=== PATIENT | female | born 1980 | race Caucasian/White ===

== ENCOUNTER → 2017-04-08 | Outpatient (CLI) | payer BC ==
--- NOTE | 2017-04-08 15:00 | RADIOLOGY REPORT (SQ) ---
EXAM DESCRIPTION: HAND LEFT 3 VIEWS COMPLETED DATE/TIME: 04/08/2017 2:00 pm REASON FOR STUDY: FINGER PAIN, LEFT M79.645 PAIN IN LEFT FINGER(S) COMPARISON: None. EXAM PARAMETERS: NUMBER OF VIEWS: Three views. TECHNIQUE: AP, lateral and oblique radiographic images acquired of the left hand. LIMITATIONS: None. FINDINGS: MINERALIZATION: Normal. BONES: No acute fracture or dislocation. No worrisome bone lesions. JOINTS: Along the ulnar aspect of the 2nd finger PIP joint, a 9 x 6 mm calcific density is present wh ich may represent calcifications/ossification of the ulnar collateral ligament at the PIP joint. A s ynovial overgrowth or tumor could not be excluded. Tophus related to gout is possible but considered less likely, given that there are no the adjacent bony erosions. Consider MRI for further evaluatio n. SOFT TISSUES: Focal soft tissue swelling along the ulnar aspect of the index finger PIP joint with 9 x 6 mm calcific or ossified nodule OTHER: No other significant finding. IMPRESSION: Focal soft tissue swelling ulnar aspect of the index finger PIP joint with a 9 x 6 mm ca lcific or ossified nodule. This could represent ligament calcification. Synovial overgrowth for liza or could not be excluded. Tophus related to gout is possible but considered less likely. Consider M RI without and with contrast for further evaluation TECHNICAL DOCUMENTATION: JOB ID: [id number] [employer]- All Rights Reserved
--- NOTE | 2017-04-08 21:21 | RADIOLOGY REPORT (SQ) ---
EXAM DESCRIPTION: MRI LT UPPER EXTREMITY COMBO COMPLETED DATE/TIME: 04/08/2017 8:29 pm REASON FOR STUDY: NODULE ON FINGER OF LEFT HAND M79.645 PAIN IN LEFT FINGER(S) COMPARISON: None. TECHNIQUE: Multiplanar imaging of the left index finger to include T1-weighted, postcontrast T1-weig hted, and T2-weighted images. CONTRAST TYPE AND DOSE: 10 mL Prohance. RENAL FUNCTION: Not provided. LIMITATIONS: None. FINDINGS: BONE MARROW: No marrow signal alteration. Specifically no marrow replacement or marrow ed qi. No evidence for osteomyelitis ; no periarticular erosions. No cortical break through. SOFT TISSUES: Along the ulnar aspect of the PIP joint, there is capsular and ligament thickening. Ra diographs reveal calcification here, potentially related to previous trauma to the ulnar collateral l igament. Regional overlying adjacent mild soft tissue scar/ edema with associated enhancement with g adolinium. No large joint effusion. OTHER: No other significant finding. IMPRESSION: 1. Findings along the ulnar aspect of the PIP joint of the index finger as described. P otentially related to previous injury here with associated scar/ edema and calcification. No evidenc e of joint effusion or erosions. No discrete mass. TECHNICAL DOCUMENTATION: JOB ID: [id number] [employer]- All Rights Reserved
== END ==
LOC: OD 13:47
PROVIDERS: ATTEND Nurse Practitioner Acute Care
DX: M79.645 Pain in left finger(s) (principal); R22.32 Localized swelling, mass and lump, left upper limb
CPT/HCPCS: 73220; 73130; A9576

== ENCOUNTER → 2017-05-14 | Outpatient (CLI) | payer BC ==
[2017-05-14 11:09] LABS: ABSOLUTE EOSINOPHILS # (AUTO) 0.2 10^3/uL (0.0-0.6); ABSOLUTE LYMPHOCYTES (AUTO) 1.3 10^3/uL (0.5-4.7); ABSOLUTE MONOCYTES (AUTO) 0.4 10^3/uL (0.1-1.4); ABSOLUTE NEUT (AUTO) 5.1 10^3/uL (1.7-8.2); BASOPHILS % (AUTO) 0.5 % (0-2); EOSINOPHILS % (AUTO) 2.8 % (0-6); HEMATOCRIT 38.3 % (36.0-47.0); HEMOGLOBIN 12.6 g/dL (12.0-15.5); HGB HCT DIFFERENCE -0.5; LYMPHOCYTES % (AUTO) 18.3 % (13-45); MEAN CORPUSCULAR HGB CONC 32.9 g/dL (32.0-36.0); MEAN CORPUSCULAR VOLUME 88 fl (80-97); MONOCYTES % (AUTO) 5.9 % (3-13); RED BLOOD COUNT 4.34 10^6/uL (3.72-5.28); RED CELL DISTRIBUTION WIDTH 12.9 % (11.5-14.0); SEGMENTED NEUTROPHILS % (AUTO) 72.5 % (42-78); WHITE BLOOD COUNT 7.1 10^3/uL (4.0-10.5)
[2017-05-14 11:53] LABS: ERYTHROCYTE SEDIMENTATION RATE 10 mm/hr (0-20)
[2017-05-17 08:13] LABS: CYCLIC CITRUL PEPTIDE IGG/A AB 11 units (0-19)
== END ==
LOC: OD 10:12
PROVIDERS: ATTEND Orthopaedic Surgery
DX: M79.89 Other specified soft tissue disorders (principal)
CPT/HCPCS: 36415; 85025; 85652; 86038; 86140; 86200; 86430